=== PATIENT | female | born 1990 | race Caucasian/White ===

== ENCOUNTER 2020-11-16 17:33 | Inpatient (IN) | payer OTHER ==
[~2020-11-16] VITALS: Ht 172.7 cm; Wt 126.5 kg
[2020-11-16 18:21] LABS: BASOPHILS 0.4 % (0-2); EOSINOPHILS 1.3 % (0-7); HEMATOCRIT 41.3 % (36.0-48.0); HEMOGLOBIN 14.3 g/dL (12-16); IMMATURE GRANULOCYTES 0.2 % (0-5); LYMPHOCYTE ABS# 2.31 10x3/uL (1.18-3.74); LYMPHOCYTES 20.8 % (15-50); MCH 30.7 pg (26.0-34.0); MCHC 34.6 g/dL (31.0-37.0); MCV 88.6 fL (80.0-100.0); MEAN PLATELET VOLUME 8.7 fL (7.4-10.4); MONOCYTES 8.5 % (2-11); NEUTROPHIL ABS# 7.67 10x3/uL (1.56-6.13); NEUTROPHILS 68.8 % (40-80); RBC 4.66 10x6/uL (4.00-5.40); RDW 12.6 % (11.5-14.5); WBC 11.1 10x3/uL (4.8-10.8)
[2020-11-16 18:36] LABS: PLATELET COUNT 323 10x3/uL (130-400)
[2020-11-16 18:37] LABS: ANION GAP 22.5 mmol/L (8-16); CALCIUM 8.8 mg/dL (8.5-10.1); CARBON DIOXIDE 17.3 mmol/L (21.0-32.0); CREATININE - SERUM 1.2 mg/dL (0.6-1.3); POTASSIUM - SERUM 3.8 mmol/L (3.5-5.1)
[2020-11-16 18:39] LABS: ACETAMINOPHEN 8.9 ug/mL (10.0-30.0); ALBUMIN 4.3 g/dL (3.4-5.0); BILIRUBIN - TOTAL 0.51 mg/dL (0.2-1.3); MAGNESIUM - SERUM 2.1 mg/dL (1.8-2.4); PROTEIN - SERUM 8.1 g/dL (6.4-8.2)
--- NOTE | 2020-11-16 18:45 | NUR ---
JUAN LAZARO BY [id number]
[2020-11-16 18:58] LABS: BILIRUBIN NEGATIVE (NEGATIVE); KETONE NEGATIVE (NEGATIVE); NITRITE POSITIVE (NEGATIVE); UROBILINOGEN NORMAL mg/dL (< 2)
[2020-11-16 18:59] LABS: BACTERIA MANY HPF (NONE SEEN); SQUAMOUS EPITHELIAL 0-5 HPF (0-4)
[2020-11-16 19:00] VITALS: BP 120/76
[2020-11-16 19:04] LABS: UDS - AMPHET POSITIVE QUAL (NEGATIVE); UDS - BARB NEGATIVE QUAL (NEGATIVE); UDS - BENZO NEGATIVE QUAL (NEGATIVE); UDS - COCAINE NEGATIVE QUAL (NEGATIVE); UDS - OPIATE NEGATIVE QUAL (NEGATIVE); UDS - PCP NEGATIVE QUAL (NEGATIVE); UDS - THC POSITIVE QUAL (NEGATIVE)
[2020-11-16 19:17] LABS: HCG URINE NEGATIVE (NEGATIVE)
[2020-11-16 19:28] VITALS: BP 130/76
[2020-11-16 21:06] VITALS: BP 106/61
[2020-11-16 22:13] VITALS: BP 117/72
[2020-11-17] VITALS (9 sets, daily range): BP systolic 99–150; BP diastolic 46–95; Ht 172.7 cm; Wt 126.5 kg
[2020-11-17 07:10] LABS: BASOPHILS 0.4 % (0-2); EOSINOPHILS 1.6 % (0-7); HEMATOCRIT 37.3 % (36.0-48.0); HEMOGLOBIN 12.5 g/dL (12-16); IMMATURE GRANULOCYTES 0.1 % (0-5); LYMPHOCYTE ABS# 2.44 10x3/uL (1.18-3.74); LYMPHOCYTES 32.3 % (15-50); MCH 30.1 pg (26.0-34.0); MCHC 33.5 g/dL (31.0-37.0); MCV 89.9 fL (80.0-100.0); MEAN PLATELET VOLUME 9.1 fL (7.4-10.4); MONOCYTES 6.4 % (2-11); NEUTROPHIL ABS# 4.47 10x3/uL (1.56-6.13); NEUTROPHILS 59.2 % (40-80); PLATELET COUNT 284 10x3/uL (130-400); RBC 4.15 10x6/uL (4.00-5.40); RDW 12.8 % (11.5-14.5)
[2020-11-17 07:29] LABS: WBC 7.6 10x3/uL (4.8-10.8)
--- NOTE | 2020-11-17 07:40 | NUR ---
IN BED RESTING. AROUSES TO VOICE. DENIES NEEDS AT THIS TIME. BED LOW POSITION, CALL LIGHT IN REACH. FREE FROM SIGNS OF DISTRESS. WILL CONTINUE TO MONITOR.
[2020-11-17 08:00] LABS: ALKALINE PHOSPHATASE 54 U/L (30-120); ALT (SGPT) 18 U/L (10-68); CALC OSMOLALITY 280 mosm/kg (275-300); CALCIUM 8.4 mg/dL (8.5-10.1); CHLORIDE - SERUM 109 mmol/L (98-107); GLUCOSE 113 mg/dL (74-106); MAGNESIUM - SERUM 2.2 mg/dL (1.8-2.4); PHOSPHOROUS 3.1 mg/dL (2.5-4.9); POTASSIUM - SERUM 3.8 mmol/L (3.5-5.1); SODIUM 141 mmol/L (136-145); UREA NITROGEN 11 mg/dL (7-18)
[2020-11-17 08:01] LABS: ALBUMIN 3.1 g/dL (3.4-5.0); CARBON DIOXIDE 24.2 mmol/L (21.0-32.0); CREATININE - SERUM 0.7 mg/dL (0.6-1.3); PROTEIN - SERUM 5.7 g/dL (6.4-8.2); eGFR NON AFRICAN AMERICAN > 90 mL/min (90-120)
[2020-11-17] MEDS ORDERED: IBUPROFEN200 MG PO (11:04)
[2020-11-17] MEDS ORDERED: ACETAMINOPHEN325 MG PO (11:05)
--- NOTE | 2020-11-17 16:50 | NUR ---
IN BED RESTING. FREE FROM SIGNS OF DISTRESS. AROUSES TO VOICE. DENIES NEEDS AT THIS TIME. BED LOW POSITION, CALL LIGHT IN REACH. WILL CONTINUE TO MONITOR.
--- NOTE | 2020-11-17 20:00 | NUR ---
PT LYING IN BED SLEEPING WITHOUT DISRESS, AWAKENS TO VERBAL STIMULI. AOX4. DENIES NEEDS AT THIS TIME. CL IN REACH
[2020-11-18 04:00] VITALS: BP 114/48
[2020-11-18 06:57] LABS: BASOPHILS 0.3 % (0-2); EOSINOPHILS 2.8 % (0-7); HEMOGLOBIN 12.4 g/dL (12-16); IMMATURE GRANULOCYTES 0.1 % (0-5); LYMPHOCYTE ABS# 2.68 10x3/uL (1.18-3.74); LYMPHOCYTES 34.3 % (15-50); MCHC 33.5 g/dL (31.0-37.0); MCV 89.4 fL (80.0-100.0); MEAN PLATELET VOLUME 9.3 fL (7.4-10.4); MONOCYTES 6.9 % (2-11); NEUTROPHIL ABS# 4.35 10x3/uL (1.56-6.13); NEUTROPHILS 55.6 % (40-80); PLATELET COUNT 287 10x3/uL (130-400); RBC 4.14 10x6/uL (4.00-5.40); RDW 12.7 % (11.5-14.5); WBC 7.8 10x3/uL (4.8-10.8)
--- NOTE | 2020-11-18 07:12 | NUR ---
RECIEVED BEDSIDE REPORT, PATIENT SLEEPING, AROUSES TO VOICE, DENIES NEEDS AT THIS TIME. BED LOW POSITION, CALL LIGHT IN REACH. FREE FROM SIGNS OF DISTRESS. WILL CONTINUE TO MONITOR.
[2020-11-18 07:42] LABS: CALC OSMOLALITY 276 mosm/kg (275-300); CALCIUM 8.2 mg/dL (8.5-10.1); CARBON DIOXIDE 23.3 mmol/L (21.0-32.0); CHLORIDE - SERUM 108 mmol/L (98-107); CREATININE - SERUM 0.7 mg/dL (0.6-1.3); GLUCOSE 90 mg/dL (74-106); MAGNESIUM - SERUM 1.9 mg/dL (1.8-2.4); PHOSPHOROUS 4.1 mg/dL (2.5-4.9); POTASSIUM - SERUM 4.1 mmol/L (3.5-5.1); SODIUM 140 mmol/L (136-145); UREA NITROGEN 8 mg/dL (7-18); eGFR NON AFRICAN AMERICAN > 90 mL/min (90-120)
[2020-11-18 07:44] VITALS: BP 132/55
[2020-11-18] MEDS ORDERED: FEXOFENADINE H180 MG PO (13:05)
[2020-11-18] MEDS ORDERED: NICODERM CQ1 EAC3 TRANSDERM (13:05)
[2020-11-18] MEDS ORDERED: AZITHROMYCIN500 MG PO (13:06)
[2020-11-18] MEDS ORDERED: TESSALON PERLE100 MG PO (13:06)
[2020-11-18] MEDS ORDERED: FLORAJEN3 CAPS460 MG PO (13:06)
[2020-11-18] MEDS ORDERED: MUCINEX600 MG PO (13:06)
[2020-11-18] MEDS ORDERED: OMNICEF300 MG PO (13:07)
--- NOTE | 2020-11-18 14:48 | NUR ---
DISCHARGE PAPERS COMPLETE. IV CATH REMOVED, CATH TIP INTACT. TELEMETRY PADS REMOVED. PAPERS SIGNED. WAITING ON RIDE TO GET HERE.
--- NOTE | 2020-11-18 16:31 | NUR ---
LEFT UNIT VIA WHEELCHAIR TO HOME AT THIS TIME.
== END 2020-11-18 16:32 | disposition home or self-care (01) | DRG 193 ==
LOC: D.ER 17:33 → D.MS 19:03 → OBSVTIME 19:03 → D.EDHOLD 19:03 → D.MS 11-17 03:57
PROVIDERS: Family Medicine; ADMIT Emergency Medicine; ATTEND Emergency Medicine
DX: J18.9 Pneumonia, unspecified organism (principal); G93.41 Metabolic encephalopathy; F30.9 Manic episode, unspecified; N39.0 Urinary tract infection, site not specified; Z68.43 Body mass index [BMI] 50.0-59.9, adult; F15.10 Other stimulant abuse, uncomplicated; E66.01 Morbid (severe) obesity due to excess calories